=== PATIENT | male | born 1980 | race Asian ===

== ENCOUNTER 2019-11-09 10:10 | Emergency (ER) | payer SELFPAY ==
[~2019-11-09] VITALS: Ht 165.1 cm; Wt 71.7 kg
[2019-11-09 10:17] VITALS: Ht 165.1 cm; Wt 71.7 kg
[2019-11-09 11:59] VITALS: BP 112/76
== END 2019-11-09 11:59 | disposition home or self-care (01) ==
LOC: ED 10:10
DX: R05 Cough (principal)